=== PATIENT | female | born 1945 | race Caucasian/White ===

== ENCOUNTER 2017-11-11 07:20 | Outpatient (CLI) | payer OTHER | END 2017-11-11 07:27 | disposition home or self-care (01) | LOC: NUCLEAR 07:20 | DX: I20.0 Unstable angina (principal); E78.2 Mixed hyperlipidemia; I11.9 Hypertensive heart disease without heart failure | CPT/HCPCS: 78452; 93017; A9500 ==

== ENCOUNTER 2021-10-24 08:00 | Inpatient (IN) | payer OTHER ==
[~2021-10-24] VITALS: Ht 160 cm; Wt 70.3 kg
[2021-10-24] MEDS ORDERED: NORVASC5 MG PO (10:07)
[2021-10-24] MEDS ORDERED: ATORVASTATIN CA10 MG PO (10:08)
[2021-10-24] MEDS ORDERED: ADULT LOW DOSE81 M1 PO (10:08)
[2021-10-24] MEDS ORDERED: TOPROL XL50 M1 PO (10:08)
[2021-10-29] MEDS ORDERED: OPTIMAL D31250 MCG (13:18)
[2021-10-29] MEDS ORDERED: PHENAZOPYRIDIN200 MG (13:18)
[2021-10-29] MEDS ORDERED: PANTOPRAZOLE SO40 MG (13:18)
[2021-10-31] MEDS ORDERED: CEFADROXIL500 MG PO (14:31)
[2021-10-31] MEDS ORDERED: ELIQUIS2.5 MG PO (14:31)
[2021-10-31] MEDS ORDERED: PERCOCET 5-3251 EACH PO (14:31)
== END 2021-10-31 18:56 | disposition designated cancer center or children's hospital (05) | DRG 470 ==
LOC: O/R 10-29 05:48 → SURH 10-29 08:00 → SURG 10-29 16:03
PROVIDERS: ADMIT Orthopaedic Surgery; ATTEND Orthopaedic Surgery
PROC: 0SRC0J9 Replacement of Right Knee Joint with Synthetic Substitute, Cemented, Open Approach (ICD-10-PCS; principal; 2021-10-29 13:45)
DX: M17.11 Unilateral primary osteoarthritis, right knee (principal); D62 Acute posthemorrhagic anemia; M22.11 Recurrent subluxation of patella, right knee; I10 Essential (primary) hypertension; Z20.822 Contact with and (suspected) exposure to COVID-19